=== PATIENT | male | born 1975 | race Two or more races ===

== ENCOUNTER 2024-07-09 18:03 | Emergency (ER) | payer MEDICAID, SELFPAY ==
[2024-07-09 18:41] VITALS: BP 142/79; PULSE 57; RESP 19; TEMP 36.9; O2SAT 98; BMI 26.5
--- NOTE | 2024-07-09 19:05 | EDNOTE_ITS ---
ED Skin Abcess FB-RME/HPI General Chief complaint: Abdominal Pain Stated complaint: RASH TO ABD X 5 DAYS Time Seen by Provider: 07/09/24 18:50 Arrival date/time: 07/09/24 18:03 Limitations: no limitations RME / HPI RME / HPI narrative: 41-year-old male with no reported past medical history presents for evaluation of rash x 5 days. Patient describes rash as itchy and diffuse to his abdomen. He notes recent change in detergent and recently using blankets that have been in storage for the last year. He also notes having multiple outdoor cats. Denies fever, chills, neck pain, nausea, vomiting. Related Data Home Medications ?Medication ?Instructions ?Recorded ?Confirmed omeprazole 20 mg tablet,delayed 20 mg PO QDAY 03/29/19 03/29/19 release ranitidine HCl 150 mg tablet 150 mg PO QDAY 03/29/19 03/29/19 Previous Rx's ?Medication ?Instructions ?Recorded ibuprofen 800 mg tablet 800 mg PO TID PRN pain #30 tabs 01/19/21 tramadol 50 mg tablet 50 mg PO BID PRN pain #6 tabs 01/19/21 Allergies Allergy/AdvReac Type Severity Reaction Status Date / Time No Known Allergies Allergy Verified 03/21/24 10:51 Review of Systems Constitutional Constitutional: Denies chills, Denies fatigue, Denies fever(s) and Denies headache(s) Eyes Eyes: Denies blurry vision and Denies change in vision ENT Ears, Nose, Mouth, and Throat: Denies headache(s), Denies lip swelling and Denies neck pain Cardiovascular Cardiovascular: Denies acrocyanosis, Denies chest pain and Denies dyspnea Respiratory Respiratory: Denies cough and Denies dyspnea Gastrointestinal Gastrointestinal: Denies nausea and Denies vomiting Musculoskeletal Musculoskeletal: Denies back pain and Denies neck pain Integumentary/Breasts Skin/Breast: Reports pruritus (Pruritic abdominal rash. ) and Reports rash (Red rash to diffuse abdomen.) Neurologic Neurologic: Denies headache(s) Endocrine Endocrine: Denies fatigue Allergic/Immunologic Allergic/Immunologic: Denies lip swelling Past Medical History Past Medical History CARDIAC: Negative Cardiac Disorders or Congestive Heart Failure RESPIRATORY: Negative Chronic Obstructive Pulmonary Disease (COPD) or Asthma GASTROINTESTINAL: Positive Gall Bladder Disease GENITOURINARY: Negative Renal Disease ENDOCRINE: Negative Diabetes Mellitus Type 1 or Diabetes Mellitus Type 2 HEMATOLOGIC: Negative Sickle Cell Disease Social History SMOKING STATUS: Never smoker ED Exam General Limitations: Present no limitations General appearance: Present alert and in no apparent distress Head Head exam: Present atraumatic and normocephalic Eye Eye exam: Present normal appearance and EOMI; Absent conjunctival injection ENT ENT exam: Present normal exam and normal oropharynx Neck Neck exam: Present normal inspection and full ROM Chest Chest inspection: Present normal inspection and symmetric chest wall rise; Absent rash Respiratory Respiratory exam: Present normal lung sounds bilaterally; Absent respiratory distress, wheezes or accessory muscle use Cardiovascular Cardiovascular exam: Present regular rate, +S1 and +S2 Abdominal Exam Abdominal exam: Present soft; Absent distention Extremities Exam Extremities exam: Present normal inspection and full ROM Back Exam Back exam: Present normal inspection and full ROM Neurological Exam Neurological exam: Present alert and normal gait Psychiatric Psychiatric exam: Present normal affect and normal mood Expanded Skin Exam Description: Present erythematous, vesicular, bullous and urticarial; Absent tenderness, discharge, fluctuant or indurated Course Quality Measures none Vital Signs Vital signs: Vital Signs Temperature 98.5 F 07/09/24 18:41 Pulse Rate 57 L 07/09/24 18:41 Respiratory Rate 19 07/09/24 18:41 Blood Pressure 142/79 H 07/09/24 18:41 Pulse Oximetry (%) 98 07/09/24 18:41 Oxygen Delivery Method Room Air 07/09/24 18:41 Pulse ox 90% on room air, within normal limits. Skin / Abscess / Foreign Body MDM Narrative MDM Narrative:: 41-year-old male presents for evaluation of rash to his abdomen for the last several days. Vital signs stable. Physical exam significant for scattered, vesicular lesions without fluctuance or purulent discharge. Not cellulitic appearing. Possible contact dermatitis given recent change in detergent. Also consider insect bites given possible exposure to fleas and recent change of bedding to winter blankets that have been in storage. Patient agreeable with plan to change detergent and disinfect winter bedding. Patient plan to follow- up with primary care within the next week for reevaluation. Patient stable at time of discharge. Patient data External records reviewed:: [facility] previous records Clinical information provided by:: patient Social determinants that could affect healthcare access:: none Patient has the following chronic illnesses:: None reported. How is presenting disease/condition affected by chronic disease/condition?: no chronic disease Evaluation data The following diagnostics were reviewed and interpreted by me:: other (specify) Lab and/or radiology exams considered but not ordered:: Considered not ordered. Interpretation Summary: Considered not ordered. Medications / Prescriptions Medications or Prescriptions considered but not ordered:: Considered not ordered. Medication administrations:: Considered not ordered. Consultations Consultation(s) initiated? (list below): No Diagnosis Skin/Abscess Differential Diagnosis: abscess of skin or subcutaneous tissue, viral exanthem, urticaria, insect bites and contact dermatitis Most likely diagnosis given after review of the tests above:: Contact dermatitis. Admission Indicated Admission indicated?: not indicated Admission Request Was there a request for admission?: No Disposition Plan Disposition Plan: Discharge Discharge Attestation Discharge Attestation: The patient and all family members were given an opportunity to ask questions and understood the discharge instructions. Discharge instructions specifically effects, indications for sooner follow up or return to the emergency department, and the expected course of current diagnosis. Patient condition: Stable Discharge Plan Plan Patient Disposition: HOME (Self Care) Disposition Comment: stable Prescriptions/Referrals Prescriptions/Med Rec: No Action ranitidine HCl 150 mg Tablet 150 mg PO QDAY omeprazole 20 mg Tablet,Delayed Release (Dr/Ec) 20 mg PO QDAY ibuprofen 800 mg tablet 800 mg PO TID PRN (Reason: pain) Qty: 30 0RF tramadol 50 mg tablet 50 mg PO BID PRN (Reason: pain) Qty: 6 0RF Problem List Clinical Impression: Contact dermatitis Patient/Caregiver Discharge Instructions Other Activity Instructions:: Change laundry detergent as discussed. Wash and dry insert blankets in hot water and dry on high heat. Continue to monitor outdoor cats for fleas prior to let them inside. Follow-up with care within the week for reevaluation. Return to the ED if your symptoms worsen or change. Education Materials: ED Contact Dermatitis Print Language: Pashto Stand Alone Forms: Precious Award Info., Patient Portal Info Letter PA/[employer] Supervising Physician PA/[employer] Supervising Physician: Dr. Alexandra
== END 2024-07-09 20:08 | disposition home or self-care (01) ==
LOC: SERX 19:14
PROVIDERS: Emergency Provider Emergency Medicine; PCP Family Medicine
DX: L25.9 Unspecified contact dermatitis, unspecified cause (principal)
CPT/HCPCS: 99281

== ENCOUNTER 2024-10-06 21:28 | Emergency (ER) | payer MEDICAID, SELFPAY ==
[2024-10-06 21:28] VITALS: BMI 27.2
[2024-10-06 23:30] VITALS: BP 152/97; PULSE 60; RESP 20; TEMP 36.8; O2SAT 95
--- NOTE | 2024-10-06 23:55 | EDNOTE_ITS ---
ED Dental RME/HPI General Chief complaint: Dental/Oral/Throat Stated complaint: TOOTHACHE [id number] Time Seen by Provider: 10/06/24 21:33 Arrival date/time: 10/06/24 21:28 49-year-old male reports with complaints of molar tooth ache. Patient states that he has a dental appointment on Tuesday to have the tooth extracted but he is unable to tolerate the pain for now he denies any fever chills nausea vomiting dizziness or headache. He also denies taking any medications all at home Limitations: no limitations Related Data Home Medications ?Medication ?Instructions ?Recorded ?Confirmed omeprazole 20 mg tablet,delayed 20 mg PO QDAY 03/29/19 03/29/19 release ranitidine HCl 150 mg tablet 150 mg PO QDAY 03/29/19 0 03/29/19 Previous Rx's ?Medication ?Instructions ?Recorded ibuprofen 800 mg tablet 800 mg PO TID PRN pain #30 t abs 01/19/21 tramadol 50 mg tablet 50 mg PO BID PRN pain #6 tab s 01/19/21 hydrocodone 5 mg-acetaminophen 325 1 tab PO BID PRN pa in #5 tabs 10/06/24 mg tablet Allergies Allergy/AdvReac Type Severity Reaction Status Date / Time No Known Allergies Allergy Verified 10/06/24 21:31 Review of Systems Constitutional Constitutional: Denies chills, Denies fever(s) and Denies headache(s) ENT Ears, Nose, Mouth, and Throat: Reports dental pain, Denies dizziness, Denies otalgia and Denies headache(s) Integumentary/Breasts Skin/Breast: Denies rash and Denies skin pain Neurologic Neurologic: Denies dizziness and Denies headache(s) ED Exam General Limitations: Present no limitations General appearance: Present alert and in no apparent distress Head Head exam: Present atraumatic ENT ENT exam: Present mucous membranes moist; Absent normal oropharynx (poor dentition, dental carries noted ) Neurological Exam Neurological exam: Present alert, oriented X3 and CN II-XII intact Psychiatric Psychiatric exam: Present normal affect and normal mood Skin Skin exam: Present warm, dry, intact and normal color Course Quality Measures none Vital Signs Vital signs: Vital Signs Temperature 98.3 F 10/06/24 23:30 Pulse Rate 60 10/06/24 23:30 Respiratory Rate 20 10/06/24 23:30 Blood Pressure 152/97 H 02/15/25 23:30 Pulse Oximetry (%) 95 10/06/24 23:30 Oxygen Delivery Method Room Air 10/06/24 23:30 Dental / Oral Patient data External records reviewed:: None Clinical information provided by:: patient Social determinants that could affect healthcare access:: none Patient has the following chronic illnesses:: poor dentition, dental carries How is presenting disease/condition affected by chronic disease/condition?: caused by Evaluation data The following diagnostics were reviewed and interpreted by me:: other (specify) (none) Lab and/or radiology exams considered but not ordered:: none Interpretation Summary: n/a Medications / Prescriptions Medications or Prescriptions considered but not ordered:: none Medication administrations:: [place] Consultations Consultation(s) initiated? (list below): No Diagnosis Most likely diagnosis given after review of the tests above:: dental pain Admission Indicated Admission indicated?: not indicated Admission Request Was there a request for admission?: No Disposition Plan Disposition Plan: Discharge Discharge Attestation Discharge Attestation: The patient and all family members were given an opportunity to ask questions and understood the discharge instructions. Discharge instructions specifically effects, indications for sooner follow up or return to the emergency department, and the expected course of current diagnosis. Patient condition: Stable Discharge Plan Plan Patient Disposition: HOME (Self Care) Prescriptions/Referrals Prescriptions/Med Rec: New hydrocodone-acetaminophen 5-325 mg tablet 1 tab PO BID MDD 4 g APAP PRN (Reason: pain) Qty: 5 0RF No Action ranitidine HCl 150 mg Tablet 150 mg PO QDAY omeprazole 20 mg Tablet,Delayed Release (Dr/Ec) 20 mg PO QDAY ibuprofen 800 mg tablet 800 mg PO TID PRN (Reason: pain) Qty: 30 0RF tramadol 50 mg tablet 50 mg PO BID PRN (Reason: pain) Qty: 6 0RF Problem List Clinical Impression: Pain, dental Patient/Caregiver Discharge Instructions Discharge Activity: activity as tolerated Education Materials: ED Dental Pain Additional Instructions: Follow-up with your dentist Print Language: Moroccan Stand Alone Forms: Precious Award Info., Patient Portal Info Letter
[2024-10-07] MEDS: HYDROcodone/APAP 5/325 TABLET 1 TAB PO (00:01)
== END 2024-10-07 00:17 | disposition home or self-care (01) ==
LOC: SERX 10-07 00:09
PROVIDERS: Emergency Provider Emergency Medicine; PCP Family Medicine
DX: K02.9 Dental caries, unspecified (principal)
CPT/HCPCS: 99283; A9270